=== PATIENT | male | born 1970 | race Caucasian/White ===

== ENCOUNTER 2016-10-08 02:19 | Inpatient (IN) | payer SELFPAY ==
[~2016-10-08] VITALS: Ht 172.7 cm; Wt 107.0 kg
[2016-10-08] VITALS (7 sets, daily range): BP systolic 133–149; BP diastolic 81–103
--- NOTE | 2016-10-08 02:57 | PHYS DOC ---
Past Medical History Past Medical History: Anxiety, CVA, Diabetes-Type II, High Cholesterol Past Surgical History: Cholecystectomy Alcohol Use: Occasionally Drug Use: None Adult General Chief Complaint Chief Complaint: CHEST PAIN HPI HPI Patient is a 46 year old male who presents with complaint of chest pain. Patient states that his pain has been present over the past 3 days and has been constant over the past day. Patient states the pain is in the middle of his chest. Patient states that it radiates up towards his neck and jaw. Patient has history of hypertension, anxiety, hyperlipidemia, type 2 diabetes mellitus, and history of CVA. The patient states that he has not been taking his blood pressure medication over the past 2-3 days because he forgot it at home and is visiting from out of town currently. Patient rates his pain as 8 out of 10. Patient also states that he has been having intermittent nausea, shortness of breath, and diaphoresis. Review of Systems Review of Systems Constitutional: Denies fever or chills [] Eyes: Denies change in visual acuity, redness, or eye pain [] HENT: Denies nasal congestion or sore throat [] Respiratory: Shortness of breath [] Cardiovascular: Chest pain [] GI: Nausea, denies abdominal abdominal pain, denies vomiting, bloody stools or diarrhea [] : Denies dysuria or hematuria [] Musculoskeletal: Denies back pain or joint pain [] Integument: Denies rash or skin lesions [] Neurologic: Denies headache, focal weakness or sensory changes [] Current Medications Current Medications Current Medications Medications (Trade) Dose Ordered Sig/Danny Start Time Stop Time Status Last Admin Dose Admin Aspirin (Children'S Aspirin) 324 mg 1X ONCE 10/08/16 03:00 10/08/16 03:01 UNV Labetalol HCl (Normodyne) 20 mg 1X ONCE 10/08/16 03:00 10/08/16 03:01 DC 10/08/16 03:07 20 MG Lorazepam 1 mg 1 mg 1X ONCE 10/08/16 03:00 10/08/16 03:01 DC 10/08/16 03:08 1 MG Multi-Ingredient Mouthwash/Gargle (Gi Cocktail Single Dose) 15 ml 1X ONCE 10/08/16 03:00 10/08/16 03:01 DC 10/08/16 03:00 15 ML Sodium Chloride (Iv Sodium Chloride 0.9% 1000ml Bag) 1,000 ml @ 100 mls/hr Q10H 10/08/16 03:00 10/08/16 12:59 10/08/16 03:09 100 MLS/HR Allergies Allergies Allergies Coded Allergies Type Severity Reaction Last Updated Verified metoclopramide Allergy Unknown 10/08/16 Yes Physical Exam Physical Exam Constitutional: Alert, afebrile, appears anxious and in mild to moderate discomfort. [] HENT: Normocephalic, atraumatic, bilateral external ears normal, oropharynx moist, no oral exudates, nose normal. [] Eyes: PERRLA, EOMI, conjunctiva normal, no discharge. [] Neck: Normal range of motion, no tenderness, supple, no stridor. [] Cardiovascular:Heart rate regular rhythm, no murmur [] Lungs & Thorax: Bilateral breath sounds clear to auscultation [] Abdomen: Bowel sounds normal, soft, mild diffuse tenderness palpation, no guarding or rebound tenderness, no masses, no pulsatile masses. [] Skin: Warm, dry, no erythema, no rash. [] Back: No tenderness, no CVA tenderness. [] Extremities: No tenderness, no cyanosis, no clubbing, ROM intact, no edema. [] Neurologic: Alert and oriented X 3, normal motor function, normal sensory function, no focal deficits noted. [] Current Patient Data Vital Signs Vital Signs Date Time Temp Pulse Resp B/P Pulse Ox O2 Delivery O2 Flow Rate FiO2 10/08/16 03:07 90 159/85 10/08/16 02:30 98.0 20 96 Room Air 98.0 Lab Values Laboratory Tests Test 10/08/16 02:25 10/08/16 02:30 Urine Collection Type Unknown Urine Color Yellow Urine Clarity Clear Urine pH 7.0 Urine Specific [place] >=1.030 Urine Protein Negativemg/dL (NEG-TRACE) Urine Glucose (UA) >=1000mg/dL (NEG) Urine Ketones (Stick) Negativemg/dL (NEG) Urine Blood Negative (NEG) Urine Nitrite Negative (NEG) Urine Bilirubin Negative (NEG) Urine Urobilinogen Dipstick 0.2mg/dL (0.2 mg/dL) Urine Leukocyte Esterase Negative (NEG) Urine RBC 0/HPF (0-2) Urine WBC Occ/HPF (0-4) Urine Squamous Epithelial Cells Occ/LPF Urine Bacteria 0/HPF (0-FEW) White Blood Count 10.4x10^3/uL (4.0-11.0) Red Blood Count 5.14x10^6/uL (4.30-5.70) Hemoglobin 15.0g/dL (13.0-17.5) Hematocrit 44.6% (39.0-53.0) Mean Corpuscular Volume 87fL (79-100) Mean Corpuscular Hemoglobin 29pg (25-35) Mean Corpuscular Hemoglobin Concent 34g/dL (31-37) Red Cell Distribution Width 13.5% (11.5-14.5) Platelet Count 176x10^3/uL (140-400) Neutrophils (%) (Auto) 66% (31-73) Lymphocytes (%) (Auto) 22% (24-48) L Monocytes (%) (Auto) 7% (0-9) Eosinophils (%) (Auto) 5% (0-3) H Basophils (%) (Auto) 1% (0-3) Neutrophils # (Auto) 6.9x10^3uL (1.8-7.7) Lymphocytes # (Auto) 2.2x10^3/uL (1.0-4.8) Monocytes # (Auto) 0.7x10^3/uL (0.0-1.1) Eosinophils # (Auto) 0.5x10^3/uL (0.0-0.7) Basophils # (Auto) 0.1x10^3/uL (0.0-0.2) Sodium Level 141mmol/L (136-145) Potassium Level 3.5mmol/L (3.5-5.1) Chloride Level 103mmol/L (98-107) Carbon Dioxide Level 28mmol/L (21-32) Anion Gap 10 (6-14) Blood Urea Nitrogen 10mg/dL (8-26) Creatinine 1.0mg/dL (0.7-1.3) Estimated GFR (Cockcroft-Gault) 80.8 Glucose Level 424mg/dL (70-99) H Calcium Level 8.3mg/dL (8.5-10.1) L Magnesium Level 1.7mg/dL (1.8-2.4) L Total Bilirubin 0.3mg/dL (0.2-1.0) Direct Bilirubin 0.1mg/dL (0.0-0.2) Aspartate Amino Transferase (AST) 18U/L (15-37) Alanine Aminotransferase (ALT) 43U/L (16-63) Alkaline Phosphatase 198U/L (46-116) H Creatine Kinase 362U/L (39-308) H Creatine Kinase MB (Mass) 1.1ng/mL (0.0-3.6) Creatine Kinase MB Relative Index 0.3% (0-4) Troponin I Quantitative < 0.017ng/mL (0.000-0.055) Total Protein 6.3g/dL (6.4-8.2) L Albumin 2.9g/dL (3.4-5.0) L Lipase 180U/L (73-393) Laboratory Tests 10/08/16 02:30 Laboratory Tests 10/08/16 02:30 EKG EKG Interpreted by me: Heart rate 90, sinus rhythm, normal intervals, axis deviation , no acute ST/T-wave abnormalities present [] Radiology/Procedures Radiology/Procedures One view AP chest x-ray interpreted by me: No infiltrate, no effusion, normal cardiac silhouette [] Course & Med Decision Making Course & Med Decision Making Pertinent Labs and Imaging studies reviewed. (See chart for details) Patient was treated with labetalol, Ativan, and aspirin in the emergency department. On reevaluation, patient's pressure has improved significantly, however patient continues to complain of significant chest pain. Patient's blood sugar was found to be significantly elevated. Patient also has an elevation in his CK level with a negative troponin at this time. Due to significant risk factors, the patient will need to be admitted for rule out of myocardial infarction. Patient admitted to Dr. Torres. Esequiel Disclaimer Esequiel Disclaimer This electronic medical record was generated, in whole or in part, using a voice recognition dictation system. 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
[2016-10-08 03:00] LABS: BASO # 0.1 x10^3/uL (0.0-0.2); BASO % 1 % (0-3); EOS % 5 % (0-3); HEMATOCRIT 44.6 % (39.0-53.0); LYMPH # 2.2 x10^3/uL (1.0-4.8); LYMPH % 22 % (24-48); MEAN CORPUSCULAR HEMOGLOBIN 29 pg (25-35); MEAN CORPUSCULAR HGB CONC 34 g/dL (31-37); MEAN CORPUSCULAR VOLUME 87 fL (79-100); MONO % 7 % (0-9); NEUT % 66 % (31-73); PLATELET COUNT 176 x10^3/uL (140-400); RED BLOOD COUNT 5.14 x10^6/uL (4.30-5.70); RED CELL DISTRIBUTION WIDTH 13.5 % (11.5-14.5); WHITE BLOOD COUNT 10.4 x10^3/uL (4.0-11.0)
[2016-10-08] MEDS ORDERED: IV NORMAL SALINE 1000ML BAG 1,000 ML IV SCH (03:00)
[2016-10-08] MEDS ORDERED: LABETALOL 20 MG/4 ML DISP.SYRIN. IVP ONE (03:00)
[2016-10-08] MEDS ORDERED: ASPIRIN 81 MG TAB.CHEW PO ONE ×2 (03:00)
[2016-10-08] MEDS ORDERED: LIDO:MAALOX:DONNATAL 1:1:1 15 ML SINGLE DOSE SWSW ONE (03:00)
[2016-10-08] MEDS ORDERED: LORAZEPAM 2 MG/ML VIAL IV ONE (03:00)
[2016-10-08 03:04] LABS: BILIRUBIN,URINE NEGATIVE (NEG); GLUCOSE,URINE >=1000 mg/dL (NEG); NITRITE,URINE NEGATIVE (NEG); PROTEIN,URINE NEGATIVE (NEG-TRACE); UROBILINOGEN,URINE 0.2 mg/dL (0.2 mg/dL)
[2016-10-08 03:11] LABS: BACTERIA,URINE 0 /HPF (0-FEW); RBC,URINE 0 /HPF (0-2); SQUAMOUS EPITHELIAL CELL,UR OCC /LPF; WBC,URINE OCC /HPF (0-4)
[2016-10-08 03:14] LABS: CALCIUM 8.3 mg/dL (8.5-10.1); GFR 80.8; POTASSIUM 3.5 mmol/L (3.5-5.1)
[2016-10-08 03:20] LABS: ALBUMIN 2.9 g/dL (3.4-5.0); DIRECT BILIRUBIN 0.1 mg/dL (0.0-0.2); MAGNESIUM 1.7 mg/dL (1.8-2.4); TOTAL BILIRUBIN 0.3 mg/dL (0.2-1.0); TOTAL PROTEIN 6.3 g/dL (6.4-8.2)
[2016-10-08 03:28] LABS: CKMB INDEX 0.3 % (0-4); CKMB MASS 1.1 ng/mL (0.0-3.6)
[2016-10-08] MEDS ORDERED: ACETAMINOPHEN 325 MG TABLET. PO PRN ×2 (03:45→09:30)
[2016-10-08] MEDS ORDERED: DEXTROSE 50% 25 GM / 50ML DISP.SYRIN. IV PRN (03:45)
[2016-10-08] MEDS: IV NORMAL SALINE 1000ML BAG 1,000 ML IV SCH ×3 (03:45→22:25)
[2016-10-08] MEDS ORDERED: ONDANSETRON PF 4 MG/2 ML VIAL. IV PRN ×2 (03:45→09:30)
[2016-10-08] MEDS: HYDROMORPHONE 2 MG/ML VIAL. IV PRN ×9 (04:49→23:58)
--- NOTE | 2016-10-08 06:22 | EKG ---
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
[2016-10-08] MEDS ORDERED: FENTANYL PF 100 MCG/2 ML VIAL. IV PRN (06:30)
--- NOTE | 2016-10-08 07:19 | RAD ---
Portable chest, 10/08/2016: History: Chest pain The heart size and pulmonary vascularity are normal. The depth of inspiration is suboptimal with minimal right basilar atelectasis. No pulmonary consolidation is seen. There is no evidence of pleural fluid. IMPRESSION: 1. Minimal right basilar atelectasis. 2. The portable chest is otherwise unremarkable.
[2016-10-08] MEDS: INSULIN ASPART 300 UNITS/3 ML INSULN.PEN SQ SCH ×3 (07:46→16:59)
[2016-10-08] MEDS ORDERED: PNEUMOCOCCAL VAX SCREEN BY RX. MC ONE (08:00)
[2016-10-08] MEDS ORDERED: ATOR10TA60 PO (08:06)
[2016-10-08] MEDS ORDERED: TERB250T8 PO (08:06)
[2016-10-08] MEDS ORDERED: HYDR25CA75 PO (08:06)
[2016-10-08] MEDS ORDERED: AMLO10TA2 PO (08:06)
[2016-10-08] MEDS ORDERED: BUPR100T11 PO (08:06)
[2016-10-08] MEDS ORDERED: REPA1TAB6 PO (08:06)
[2016-10-08] MEDS ORDERED: INSU100V13 SQ (08:06)
[2016-10-08] MEDS ORDERED: LISI-334 PO (08:06)
[2016-10-08] MEDS ORDERED: LORA1TAB PO (08:06)
[2016-10-08] MEDS ORDERED: LISI1TAB5 PO (08:06)
[2016-10-08] MEDS ORDERED: METF10002 PO (08:06)
[2016-10-08] MEDS ORDERED: IBUP-1027 PO (08:06)
[2016-10-08] MEDS ORDERED: PNEUMOC CONJ VACC 23-VALENT 0.5 ML VIAL. VAX IM ONE (09:00)
[2016-10-08] MEDS ORDERED: hydrALAZINE 20 MG/ML VIAL. IVP PRN (09:30)
[2016-10-08] MEDS ORDERED: ALBUTEROL SULFATE 2.5 MG/3 ML NEBU. NEB PRN (09:30)
--- NOTE | 2016-10-08 09:32 | PDOC1 ---
History and Physical Current Problem List Problem List Problems Medical Problems: (1) Accelerated hypertension Status: Acute (2) Chest pain Status: Acute (3) Dehydration Status: Acute (4) Moderate protein malnutrition Status: Acute (5) Uncontrolled diabetes mellitus Status: Acute Current Medications Current Medications Current Medications Medications (Trade) Dose Ordered Sig/Danny Start Time Stop Time Status Last Admin Dose Admin Acetaminophen (Tylenol) 650 mg PRN Q4HRS PRN 10/08/16 03:45 10/09/16 03:44 Aspirin (Children'S Aspirin) 324 mg 1X ONCE 10/08/16 03:00 10/08/16 03:01 UNV Dextrose 12.5 gm PRN Q15MIN PRN 10/08/16 03:45 Fentanyl Citrate (Fentanyl 2ml Vial) 50 mcg PRN Q2HR PRN 10/08/16 06:30 10/08/16 06:36 50 MCG Hydromorphone HCl (Dilaudid) 1 mg PRN Q2HR PRN 10/08/16 03:45 10/08/16 07:41 1 MG Insulin Aspart (Novolog) 0-9 UNITS TIDWMEALS 10/08/16 08:00 10/08/16 07:46 5 UNITS Labetalol HCl (Normodyne) 20 mg 1X ONCE 10/08/16 03:00 10/08/16 03:01 DC 10/08/16 03:07 20 MG Lorazepam (Ativan) 1 mg 1X ONCE 10/08/16 03:00 10/08/16 03:01 DC 10/08/16 03:08 1 MG Multi-Ingredient Mouthwash/Gargle (Gi Cocktail Single Dose) 15 ml 1X ONCE 10/08/16 03:00 10/08/16 03:01 DC 10/08/16 03:00 15 ML Ondansetron HCl 4 mg 4 mg PRN Q8HRS PRN 10/08/16 03:45 10/09/16 03:44 Pneumococcal Polyvalent Vaccine (Do NOT chart on this placeholder) 1 each 1X ONCE 10/08/16 08:00 10/08/16 08:01 UNV Pneumococcal Polyvalent Vaccine (Pneumovax 23) 0.5 ml ONCE ONCE 10/08/16 09:00 10/08/16 09:01 DC Sodium Chloride (Iv Sodium Chloride 0.9% 1000ml Bag) 1,000 ml @ 100 mls/hr Q10H 10/08/16 03:45 10/09/16 03:44 Allergies Allergies Allergies Coded Allergies Type Severity Reaction Last Updated Verified metoclopramide Allergy Unknown 10/08/16 Yes ROS Review of System CONSTITUTIONAL: No fever or chills EYES: No recent changes SKIN: No rash or itching CARDIOVASCULAR: chest pain, no syncope, palpitations, or edema RESPIRATORY: No SOB or cough GASTROINTESTINAL: No nausea, vomiting or abdominal pain NEUROLOGICAL: No headaches or weakness ENDOCRINE: No cold or heat intolerance GENITOURINARY: No urgency or frequency of urination MUSCULOSKELETAL: No back pain or joint pain LYMPHATICS: No enlarged lymph nodes PSYCHIATRIC: No anxiety or depression Physical Exam Physical Exam GEN.: No apparent distress. Alert and oriented. HEENT: Head is normocephalic, atraumatic NECK: Supple. no jvd LUNGS: Clear to auscultation. normal airflow HEART: RRR, S1, S2 present. Peripheral pulses intact ABDOMEN: Soft, nontender. Positive bowel sounds. EXTREMITIES: Without any cyanosis. NEUROLOGIC: Normal speech, normal tone PSYCHIATRIC: Normal affect, normal mood. SKIN: No ulcerations Vitals Vitals Vital Signs Date Time Temp Pulse Resp B/P Pulse Ox O2 Delivery O2 Flow Rate FiO2 10/08/16 08:00 Room Air 10/08/16 07:00 98.0 71 20 133/88 90 98.0 Labs Labs Laboratory Tests Test 10/08/16 02:25 10/08/16 02:30 10/08/16 06:58 Urine Collection Type Unknown Urine Color Yellow Urine Clarity Clear Urine pH 7.0 Urine Specific [place] >=1.030 Urine Protein Negativemg/dL (NEG-TRACE) Urine Glucose (UA) >=1000mg/dL (NEG) Urine Ketones (Stick) Negativemg/dL (NEG) Urine Blood Negative (NEG) Urine Nitrite Negative (NEG) Urine Bilirubin Negative (NEG) Urine Urobilinogen Dipstick 0.2mg/dL (0.2 mg/dL) Urine Leukocyte Esterase Negative (NEG) Urine RBC 0/HPF (0-2) Urine WBC Occ/HPF (0-4) Urine Squamous Epithelial Cells Occ/LPF Urine Bacteria 0/HPF (0-FEW) White Blood Count 10.4x10^3/uL (4.0-11.0) Red Blood Count 5.14x10^6/uL (4.30-5.70) Hemoglobin 15.0g/dL (13.0-17.5) Hematocrit 44.6% (39.0-53.0) Mean Corpuscular Volume 87fL (79-100) Mean Corpuscular Hemoglobin 29pg (25-35) Mean Corpuscular Hemoglobin Concent 34g/dL (31-37) Red Cell Distribution Width 13.5% (11.5-14.5) Platelet Count 176x10^3/uL (140-400) Neutrophils (%) (Auto) 66% (31-73) Lymphocytes (%) (Auto) 22% (24-48) Monocytes (%) (Auto) 7% (0-9) Eosinophils (%) (Auto) 5% (0-3) Basophils (%) (Auto) 1% (0-3) Neutrophils # (Auto) 6.9x10^3uL (1.8-7.7) Lymphocytes # (Auto) 2.2x10^3/uL (1.0-4.8) Monocytes # (Auto) 0.7x10^3/uL (0.0-1.1) Eosinophils # (Auto) 0.5x10^3/uL (0.0-0.7) Basophils # (Auto) 0.1x10^3/uL (0.0-0.2) Sodium Level 141mmol/L (136-145) Potassium Level 3.5mmol/L (3.5-5.1) Chloride Level 103mmol/L (98-107) Carbon Dioxide Level 28mmol/L (21-32) Anion Gap 10 (6-14) Blood Urea Nitrogen 10mg/dL (8-26) Creatinine 1.0mg/dL (0.7-1.3) Estimated GFR (Cockcroft-Gault) 80.8 Glucose Level 424mg/dL (70-99) Calcium Level 8.3mg/dL (8.5-10.1) Magnesium Level 1.7mg/dL (1.8-2.4) Total Bilirubin 0.3mg/dL (0.2-1.0) Direct Bilirubin 0.1mg/dL (0.0-0.2) Aspartate Amino Transf (AST/SGOT) 18U/L (15-37) Alanine Aminotransferase (ALT/SGPT) 43U/L (16-63) Alkaline Phosphatase 198U/L (46-116) Creatine Kinase 362U/L (39-308) Creatine Kinase MB (Mass) 1.1ng/mL (0.0-3.6) Creatine Kinase MB Relative Index 0.3% (0-4) Troponin I Quantitative < 0.017ng/mL (0.000-0.055) Total Protein 6.3g/dL (6.4-8.2) Albumin 2.9g/dL (3.4-5.0) Lipase 180U/L (73-393) Glucose (Fingerstick) 371mg/dL (70-99) Laboratory Tests Test 10/08/16 02:25 10/08/16 02:30 10/08/16 06:58 Urine Collection Type Unknown Urine Color Yellow Urine Clarity Clear Urine pH 7.0 Urine Specific [place] >=1.030 Urine Protein Negativemg/dL (NEG-TRACE) Urine Glucose (UA) >=1000mg/dL (NEG) Urine Ketones (Stick) Negativemg/dL (NEG) Urine Blood Negative (NEG) Urine Nitrite Negative (NEG) Urine Bilirubin Negative (NEG) Urine Urobilinogen Dipstick 0.2mg/dL (0.2 mg/dL) Urine Leukocyte Esterase Negative (NEG) Urine RBC 0/HPF (0-2) Urine WBC Occ/HPF (0-4) Urine Squamous Epithelial Cells Occ/LPF Urine Bacteria 0/HPF (0-FEW) White Blood Count 10.4x10^3/uL (4.0-11.0) Red Blood Count 5.14x10^6/uL (4.30-5.70) Hemoglobin 15.0g/dL (13.0-17.5) Hematocrit 44.6% (39.0-53.0) Mean Corpuscular Volume 87fL (79-100) Mean Corpuscular Hemoglobin 29pg (25-35) Mean Corpuscular Hemoglobin Concent 34g/dL (31-37) Red Cell Distribution Width 13.5% (11.5-14.5) Platelet Count 176x10^3/uL (140-400) Neutrophils (%) (Auto) 66% (31-73) Lymphocytes (%) (Auto) 22% (24-48) Monocytes (%) (Auto) 7% (0-9) Eosinophils (%) (Auto) 5% (0-3) Basophils (%) (Auto) 1% (0-3) Neutrophils # (Auto) 6.9x10^3uL (1.8-7.7) Lymphocytes # (Auto) 2.2x10^3/uL (1.0-4.8) Monocytes # (Auto) 0.7x10^3/uL (0.0-1.1) Eosinophils # (Auto) 0.5x10^3/uL (0.0-0.7) Basophils # (Auto) 0.1x10^3/uL (0.0-0.2) Sodium Level 141mmol/L (136-145) Potassium Level 3.5mmol/L (3.5-5.1) Chloride Level 103mmol/L (98-107) Carbon Dioxide Level 28mmol/L (21-32) Anion Gap 10 (6-14) Blood Urea Nitrogen 10mg/dL (8-26) Creatinine 1.0mg/dL (0.7-1.3) Estimated GFR (Cockcroft-Gault) 80.8 Glucose Level 424mg/dL (70-99) Calcium Level 8.3mg/dL (8.5-10.1) Magnesium Level 1.7mg/dL (1.8-2.4) Total Bilirubin 0.3mg/dL (0.2-1.0) Direct Bilirubin 0.1mg/dL (0.0-0.2) Aspartate Amino Transf (AST/SGOT) 18U/L (15-37) Alanine Aminotransferase (ALT/SGPT) 43U/L (16-63) Alkaline Phosphatase 198U/L (46-116) Creatine Kinase 362U/L (39-308) Creatine Kinase MB (Mass) 1.1ng/mL (0.0-3.6) Creatine Kinase MB Relative Index 0.3% (0-4) Troponin I Quantitative < 0.017ng/mL (0.000-0.055) Total Protein 6.3g/dL (6.4-8.2) Albumin 2.9g/dL (3.4-5.0) Lipase 180U/L (73-393) Glucose (Fingerstick) 371mg/dL (70-99) VTE Prophylaxis Ordered VTE Prophylaxis Devices: Yes VTE Pharmacological Prophylaxi: Yes SANDY RANKIN MD Oct 08, 2016 09:32
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
[2016-10-08] MEDS ORDERED: IBUPROFEN 400 MG TABLET. PO PRN (09:45)
[2016-10-08 10:24] LABS: CHOLESTEROL/HDL RATIO 6.6
[2016-10-08] MEDS: LISINOPRIL 20 MG TABLET PO SCH ×2 (10:42→17:32)
[2016-10-08] MEDS: HYDROCODONE/APAP 5/325MG TABLET. PO PRN ×2 (10:43→22:10)
[2016-10-08] MEDS: LORAZEPAM 1 MG TABLET. PO PRN ×2 (10:43→19:30)
[2016-10-08] MEDS: AMLODIPINE BESYLATE 10 MG TABLET PO SCH (10:43)
[2016-10-08] MEDS: TERBINAFINE 250 MG TABLET. PO SCH (11:00)
[2016-10-08] MEDS ORDERED: MAGNESIUM SULFATE 2GM 50 ML IV ONE (11:00)
[2016-10-08] MEDS ORDERED: METFORMIN 1,000 MG TABLET PO SCH (11:00)
[2016-10-08] MEDS: REPAGLINIDE 0.5 MG TABLET PO SCH ×2 (11:07→16:54)
--- NOTE | 2016-10-08 11:55 | PDOC ---
Infectious Disease Note Vital Sign Vital Signs Vital Signs Date Time Temp Pulse Resp B/P Pulse Ox O2 Delivery O2 Flow Rate FiO2 10/08/16 11:00 98.1 74 20 143/98 93 Room Air 98.1 Labs Lab Laboratory Tests Test 10/08/16 02:25 10/08/16 02:30 10/08/16 06:58 10/08/16 09:55 Urine Collection Type Unknown Urine Color Yellow Urine Clarity Clear Urine pH 7.0 Urine Specific [place] >=1.030 Urine Protein Negativemg/dL (NEG-TRACE) Urine Glucose (UA) >=1000mg/dL (NEG) Urine Ketones (Stick) Negativemg/dL (NEG) Urine Blood Negative (NEG) Urine Nitrite Negative (NEG) Urine Bilirubin Negative (NEG) Urine Urobilinogen Dipstick 0.2mg/dL (0.2 mg/dL) Urine Leukocyte Esterase Negative (NEG) Urine RBC 0/HPF (0-2) Urine WBC Occ/HPF (0-4) Urine Squamous Epithelial Cells Occ/LPF Urine Bacteria 0/HPF (0-FEW) White Blood Count 10.4x10^3/uL (4.0-11.0) Red Blood Count 5.14x10^6/uL (4.30-5.70) Hemoglobin 15.0g/dL (13.0-17.5) Hematocrit 44.6% (39.0-53.0) Mean Corpuscular Volume 87fL (79-100) Mean Corpuscular Hemoglobin 29pg (25-35) Mean Corpuscular Hemoglobin Concent 34g/dL (31-37) Red Cell Distribution Width 13.5% (11.5-14.5) Platelet Count 176x10^3/uL (140-400) Neutrophils (%) (Auto) 66% (31-73) Lymphocytes (%) (Auto) 22% (24-48) Monocytes (%) (Auto) 7% (0-9) Eosinophils (%) (Auto) 5% (0-3) Basophils (%) (Auto) 1% (0-3) Neutrophils # (Auto) 6.9x10^3uL (1.8-7.7) Lymphocytes # (Auto) 2.2x10^3/uL (1.0-4.8) Monocytes # (Auto) 0.7x10^3/uL (0.0-1.1) Eosinophils # (Auto) 0.5x10^3/uL (0.0-0.7) Basophils # (Auto) 0.1x10^3/uL (0.0-0.2) Sodium Level 141mmol/L (136-145) Potassium Level 3.5mmol/L (3.5-5.1) Chloride Level 103mmol/L (98-107) Carbon Dioxide Level 28mmol/L (21-32) Anion Gap 10 (6-14) Blood Urea Nitrogen 10mg/dL (8-26) Creatinine 1.0mg/dL (0.7-1.3) Estimated GFR (Cockcroft-Gault) 80.8 Glucose Level 424mg/dL (70-99) Calcium Level 8.3mg/dL (8.5-10.1) Magnesium Level 1.7mg/dL (1.8-2.4) Total Bilirubin 0.3mg/dL (0.2-1.0) Direct Bilirubin 0.1mg/dL (0.0-0.2) Aspartate Amino Transf (AST/SGOT) 18U/L (15-37) Alanine Aminotransferase (ALT/SGPT) 43U/L (16-63) Alkaline Phosphatase 198U/L (46-116) Creatine Kinase 362U/L (39-308) Creatine Kinase MB (Mass) 1.1ng/mL (0.0-3.6) Creatine Kinase MB Relative Index 0.3% (0-4) Troponin I Quantitative < 0.017ng/mL (0.000-0.055) < 0.017ng/mL (0.000-0.055) Total Protein 6.3g/dL (6.4-8.2) Albumin 2.9g/dL (3.4-5.0) Triglycerides Level 629mg/dL (0-150) Cholesterol Level 199mg/dL (0-200) LDL Cholesterol, Calculated 43mg/dL (0-100) VLDL Cholesterol, Calculated 126mg/dL (0-40) HDL Cholesterol 30mg/dL (40-60) Cholesterol/HDL Ratio 6.6 Lipase 180U/L (73-393) Thyroid Stimulating Hormone (TSH) 3.522uIU/mL (0.358-3.74) Glucose (Fingerstick) 371mg/dL (70-99) D-Dimer (Judy) < 0.27ug/mlFEU (0.00-0.50) Test 10/08/16 11:43 Glucose (Fingerstick) 279mg/dL (70-99) Objective Assessment Syphilis with the RPR titer 1: 512 Chest pain HTN MS CVA Plan Plan of Care PCN G 2.4 million units x 1 repeat rpr, FTA ABS pending SIS CARBONE MD Oct 08, 2016 11:54
[2016-10-08] MEDS ORDERED: PENICILLIN G BENZATHINE LA 2,400,000 UNIT/4 ML DISP.SYRIN. IM ONE (13:00)
[2016-10-08] MEDS ORDERED: IOHEXOL 350 MG/ML 100ML VIAL. IV ONE (13:15)
[2016-10-08] MEDS ORDERED: CONTRAST GIVEN MC PRN (13:15)
--- NOTE | 2016-10-08 14:00 | CARD ---
APPROVED REPORT EXAM: Two-dimensional and M-mode echocardiogram with Doppler and color Doppler. Other Information Quality : Average Rhythm : NSR INDICATION Chest Pain 2D DIMENSIONS RVDd2.7 (2.9-3.5cm)Left Atrium(2D)3.6 (1.6-4.0cm) IVSd1.2 (0.7-1.1cm)Aortic Root(2D)3.2 (2.0-3.7cm) LVDd4.8 (3.9-5.9cm)LVOT Diameter2.2 (1.8-2.4cm) PWd1.2 (0.7-1.1cm)LVDs3.3 (2.5-4.0cm) FS (%) 31.9 %SV64.7 ml LVEF(%)59.9 (>50%) Aortic Valve AoV Peak Trell.142.8cm/sAoV VTI26.1cm AO Peak GR.8.2mmHgLVOT Peak Trell.113.9cm/s LVOT VTI 24.56cmAO Mean GR.4mmHg RONIT (VMAX)3.28vi5VCW (VTI)3.60cm2 Mitral Valve MV E Fyctewut42.9cm/sMV DECEL HTRC655la MV A Rvhthiwo02.9cm/sMV E Mean Gr.2mmHg MV LKD94hvJ/A Ratio1.3 MV A Jfrtgtuk565guMLU (PHT)3.94cm2 TDI E/Lateral E'8.0E/Medial E'8.1 Pulmonary Valve PV Peak Uzhptldr97.3cm/sPV Peak Grad.3mmHg RVOT VTI17.1cm Tricuspid Valve TR P. Yirpkltk592po/sRAP FPDTFWYB6gwKz TR Peak Gr.52paHtGJCW15twDn Pulmonary Vein S1 Tnmzcbxq77.9cm/sD2 Dndnqlce95.1cm/s LEFT VENTRICLE The left ventricle is normal size. There is borderline concentric left ventricular hypertrophy. Left ventricle systolic function is normal. The Ejection Fraction is 60-65%. There is normal LV segmental wall motion. The left ventricular diastolic function and filling is normal for age. RIGHT VENTRICLE The right ventricle is normal size. The right ventricular systolic function is normal. ATRIA The left atrium size is normal. The right atrium size is normal. The interatrial septum is intact wit h no evidence for an atrial septal defect or patent foramen ovale as noted on 2-D or Doppler imaging. AORTIC VALVE The aortic valve is normal in structure and function. The aortic valve is trileaflet. Doppler and Col or Flow revealed no significant aortic regurgitation. There is no significant aortic valvular stenosi s. MITRAL VALVE The mitral valve is normal in structure and function. There is no mitral valve stenosis. Doppler and Color Flow revealed no mitral valve regurgitation noted. TRICUSPID VALVE The tricuspid valve is normal in structure and function. Doppler and Color Flow revealed trace tricus pid regurgitation. The PA pressure was estimated at 19 mmHg. There is no tricuspid valve stenosis. PULMONIC VALVE The pulmonic valve is not well visualized. Doppler and Color Flow revealed no pulmonic valvular regur gitation. There is no pulmonic valvular stenosis. GREAT VESSELS The aortic root is normal in size. Normal pulmonary venous flow (Doppler). The IVC is normal in size and collapses >50% with inspiration. PERICARDIAL EFFUSION There is no evidence of significant pericardial effusion. Critical Notification Critical Value: No <Conclusion> Left ventricle systolic function is normal. The Ejection Fraction is 60-65%. There is normal LV segmental wall motion.
--- NOTE | 2016-10-08 14:52 | RAD ---
EXAM: CT angiogram of the chest with and without intravenous contrast. HISTORY: Chest pain. TECHNIQUE: Computed tomographic images of the chest were obtained prior to and following the administration of 800 cc Omnipaque 300 intravenous contrast. Three-dimensional maximum intensity projection images were obtained. COMPARISON: None. FINDINGS: There is no evidence of aortic aneurysm or dissection. There is a standard aortic arch branching pattern. There is no aortic wall thickening or surrounding stranding. There are several prominent mediastinal lymph nodes, a nonspecific finding. For reference purposes, there is a right paratracheal lymph node measuring 1.3 cm in maximum dimension. There is no pneumothorax or pleural effusion. There is mild posterior dependent atelectasis. There is a 7 mm nodular opacity along the superior aspect of the right major fissure, possibly an interfissural lymph node. There is suspected lingular atelectasis or scarring. There is hepatomegaly and hepatic steatosis. No focal hepatic lesion is seen. The gallbladder is surgically absent. The pancreas, spleen, adrenal glands and distal aspects of the kidneys are unremarkable. There are degenerative changes throughout the thoracic spine. No suspicious osseous lesion is seen. There is mild gynecomastia. IMPRESSION: 1. Prominent nonspecific mediastinal lymph nodes. These may be reactive or physiologic. 2. 7 mm nodular opacity along the superior aspect of the right major fissure, possibly an interfissural lymph node. Follow-up can be performed according to Fleischner Society criteria if clinically indicated. 3. Hepatomegaly and hepatic steatosis.
[2016-10-08] MEDS: HYDROCHLOROTHIAZIDE 12.5 MG CAPSULE. PO SCH (17:36)
[2016-10-08] MEDS ORDERED: ATORVASTATIN CALCIUM 10 MG TABLET. PO SCH (21:00)
[2016-10-08] MEDS ORDERED: HYDROXYZINE PAMOATE 25 MG CAPSULE PO SCH (21:00)
[2016-10-08] MEDS ORDERED: INSULIN DETEMIR 300 UNITS/3 ML INSULN.PEN. SQ SCH (21:00)
[2016-10-08] MEDS: buPROPion 100 MG TABLET PO SCH (21:52)
[2016-10-08] MEDS: OMEGA-3 FATTY ACIDS/FISH OIL 1,000 MG CAPSULE. PO SCH (21:53)
--- NOTE | 2016-10-09 01:00 | CONS ---
DATE OF CONSULTATION: 10/08/2016 REQUESTING PHYSICIAN: Dr. Rogers. REASON FOR CONSULTATION: Syphilis titer positive. HISTORY OF PRESENT ILLNESS: This is a 46-year-old gentleman with history of hypertension, acute AR, CVA, who came in with chest pain, significant anxiety disorder. He says he just could not breathe because he was so worried about his heart. The patient also does plasma donation and recently he was told that his RPR is positive, and he was supposed to have treatment done, but he has not thought on it yet. The patient denies any sexual encounter apart from his whom he is together with for 27 years, he says. Also denies any penile lesions. PAST MEDICAL HISTORY: Positive for hypertension, coronary artery disease, hyperlipidemia, CVA and diabetes. SOCIAL HISTORY: Negative for smoking, alcohol, or illicit drug use. ALLERGIES: No known antibiotic allergies. CURRENT MEDICATIONS: Reviewed. REVIEW OF SYSTEMS: As per HPI, all other systems reviewed are negative. PHYSICAL EXAMINATION: GENERAL: Alert, oriented gentleman, not in distress. VITAL SIGNS: Stable, afebrile. HEENT: NAD. NECK: Supple, no JVP, no lymphadenopathy. LUNGS: Clear. HEART: S1, S2 regular. ABDOMEN: Benign. EXTREMITIES: No edema or cyanosis. SKIN: Unremarkable. NEUROLOGIC: The patient is neurologically intact. LABORATORY DATA: The patient's white count is normal. BUN and creatinine is normal. Glucose is very high. Urinalysis unremarkable. Chest x-ray is unremarkable. Echocardiogram was unremarkable on preliminary verbal report. I did call [facility] in [place] and talked to the health department there. His titer was 1:512, and FTA-ABS and HIV testings are pending. IMPRESSION: 1. Early syphilis, at least by his history. 2. Chest pain. 3. Diabetes. 4. Hypertension. 5. Coronary artery disease. RECOMMENDATION: Would give 2.4 million units of penicillin G. We will repeat the titrate to see if it keeps going up, and he is going to have followup with [facility]. Thank you very much, Dr. Rogers, for giving me the opportunity to participate in this patient's care. SIS CARBONE MD DR: SADAF/roxane JOB#: [id number] / [id number]
--- NOTE | 2016-10-09 02:16 | HP ---
ADMIT DATE: 10/08/2016 CHIEF COMPLAINT: Chest pain. HISTORY OF PRESENT ILLNESS: A 46-year-old male patient, presented to the ER with a complaint of chest pain for 4 days. The patient described his chest pain as a pressure in the center of his chest radiating into the back and both sides of the shoulder and jaw and neck. He has been suffering for the last 4 days; however, yesterday, he visited ____, which made him to come to the ER. He denies any other symptoms such as syncope, palpitations; however, his symptoms got better with GI cocktail. Denies any other symptoms. He had a history of WI in the past and also CVA in the past. His stress test was negative in the past. The patient denies that his symptoms are not comparable to his earlier presentation. PAST MEDICAL HISTORY: 1. Hypertension. 2. WI in 2008. 3. CVA. 4. Ventral hernia. 5. Osteoarthritis. 6. Questionable syphilis discovered as part of the routine blood work and blood transfusions were offered. 7. Diabetes. PAST SURGICAL HISTORY: Cholecystectomy. FAMILY HISTORY: Coronary artery disease in father and mother. SOCIAL HISTORY: Less than 1 pack of smoking. No alcohol, no drug abuse. REVIEW OF SYSTEMS AND PHYSICAL EXAMINATION: Please see my electronic H and P. LABORATORY FINDINGS: First set of troponins negative. CBC, BMP within normal limits. Magnesium is 1.7, sodium 141, potassium 3.5, chloride is 103, carbon dioxide 28, anion gap is 10. CBC: WBC 10.4, hemoglobin is 15.0, MCV is 87, platelets ____ 17.6. D-dimer less than 0.27. IMAGING STUDIES: Chest x-ray: No acute process seen. ASSESSMENT: 1. Intractable chest pain, possible differential, coronary artery disease, unstable angina, gastritis, pulmonary embolism, aortic dissection. 2. Questionable syphilis. 3. Prior history of cerebrovascular accident. 4. Hypertension. 5. Diabetes mellitus. PLAN: 1. Cardiology has been consulted for further cardiac workup. We will monitor 2 sets of troponin and D-dimer. CTA of the chest versus coronary angiogram as per Cardiology. 2. Infectious Disease has been consulted for ____ penicillin administration. 3. Pain control with IV Dilaudid 1 mg q.2 hours as needed. 4. Plan explained to the patient and his . 5. Prognosis is guarded. SANDY RANKIN MD DR: KELECHI/roxane JOB#: [id number] / [id number]
[2016-10-09 03:19] VITALS: BP 143/96
--- NOTE | 2016-10-09 05:00 | ACF ---
Admission Forms Criteria CHEST PAIN Clinical Indications for Admission to Inpatient Care (Place 'X' for any and all applicable criteria): Admission is indicated for chest pain and ANY ONE of the following(1)(2)(3)(4)(5 ): [ ]I. Angina with acute coronary syndrome (Also use Myocardial Infarction or Angina guideline) [ ]II. Hemodynamic instability [ ]III. Angina needing acute intervention as indicated by ALL of the following( 11)(12): [ ]a) Unstable angina is present as indicated by angina that is ANY ONE of the following: [ ]i) New onset [ ]ii) Nocturnal [ ]iii) Prolonged at rest [ ]iv) Progressive [ ]b) Angina warrants acute intervention as indicated by ANY ONE of the following: [ ]i) Recurrent angina (e.g, not responding as previously to treatment) [ ]ii) Angina at rest or with low-level activities despite initial medical therapy [ ]iii) New or presumably new ST-segment depression on ECG [ ]iv) Signs or symptoms of heart failure (eg, dyspnea, pulmonary edema) [ ]v) New or worsening mitral regurgitation [ ]vi) Hemodynamic instability [ ]vii) Dangerous arrhythmia (eg, sustained ventricular tachycardia) [ ]viii) History of percutaneous coronary intervention within 6 months [ ]ix) History of coronary artery bypass graft surgery [ ]x) STEFANY risk score of 2 or greater[A] [ ]xi) History of Diabetes(14) [ ]xii) High-risk cardiac ischemia findings on noninvasive testing (e.g, echocardiogram, treadmill testing, nuclear scan) [ ]xiii) Chronic renal insufficiency (ie, estimated GFR less than 60 mL/min/1.732m) [ ]xiv) Left ventricular ejection fraction less than 40% [ ]IV. Evidence of NM (eg, cardiac biomarkers positive, ST-segment elevation on ECG) also use Myocardial Infarction Criteria Form. [ ]V. Pulmonary edema [ ]. Respiratory distress [ ]VII. Chest pain indicative of serious diagnosis other than coronary artery disease (eg, aortic dissection) [ ]VIII. Contraindications and/or Inappropriate clinical situations for Observational Care in patients with Chest Pain, when ANY ONE of the following is required: [ ]a) Patient with risk factor for pulmonary embolism, acute coronary syndrome and myocardial infarction (18) [ ]b) Patient with Pulmonary embolism require an average LOS of 4.3 days, therefore emergency department observation management is inappropriate 18,23 [ ]c) Painful condition/s in the elderly, have the highest rate of recidivism after emergency department observation management (10.8%) 20,21,22 [ ]d) Elevated cardiac biomarker requires intensive and exhaustive care (19) [X]IX. General contraindications and/or Inappropriate clinical situations for Observational Care in patients with Chest Pain, when ANY ONE of the following is required: [X]a) Prediction of prolongation of LOS based on ANY ONE of the following may be considered as a contraindication for observational care 2, 3, 4, 5, 6, 7, 8, 9, 10, 11 [ ]i) Age > 65 yrs. [ ]ii) Patient arriving by ambulance [ ]iii) Patient with high acuity [X]iv) Patient requiring vital sign monitoring [X]v) Patient on IV medication [ ]b) Systolic blood pressures 180mmHg 3,12 [ ]c) Patient with altered mental status including delirium and other alteration of consciousness, (3) [ ]d) Patient whose discharge disposition will be to a correction home or rehabilitation home should not be managed in Emergency Department Observation Unit. CMS rule requires 3 days hospital stay before such placement. 3,13 [ ]e) Patient with failure to thrive due to broad array of etiologies 3,16,17 [ ]f) Inability to ambulate 3,14 Extended stay beyond goal length of stay may be needed for (1)(28): [ ]a) Specific condition diagnosed after evaluation (eg, pulmonary embolism, aortic dissection) [ ]b) Unstable angina [ ]c) Continued suspicion of acute coronary syndrome with inability to complete needed cardiac evaluation (eg, patient clinically unable to undergo stress testing) [ ]d) Myocardial infarction (Contents from ANGINA and CHEST PAIN clinical indications for admission to inpatient care have been integrated in this form) The original [email or web address] content created by [employer] has been revised. The portions of the content which have been revised are identified through the use of italic text or in bold, and [facility] has neither reviewed nor approved the modified material. All other unmodified content is copyright [facility] [email or web address]. Please see references footnoted in the original [facility] edition 2016 Admission Criteria Met?: Yes GALINA PRINCE Oct 09, 2016 05:00
[2016-10-09 06:47] LABS: BASO # 0.1 x10^3/uL (0.0-0.2); BASO % 1 % (0-3); EOS % 8 % (0-3); HEMATOCRIT 43.4 % (39.0-53.0); HEMOGLOBIN 14.4 g/dL (13.0-17.5); LYMPH # 1.9 x10^3/uL (1.0-4.8); LYMPH % 23 % (24-48); MEAN CORPUSCULAR HEMOGLOBIN 29 pg (25-35); MEAN CORPUSCULAR HGB CONC 33 g/dL (31-37); MEAN CORPUSCULAR VOLUME 88 fL (79-100); MONO % 5 % (0-9); NEUT % 64 % (31-73); PLATELET COUNT 169 x10^3/uL (140-400); RED BLOOD COUNT 4.95 x10^6/uL (4.30-5.70); RED CELL DISTRIBUTION WIDTH 13.4 % (11.5-14.5); WHITE BLOOD COUNT 8.3 x10^3/uL (4.0-11.0)
[2016-10-09 07:00] VITALS: BP 118/79
[2016-10-09 07:09] LABS: CALCIUM 8.1 mg/dL (8.5-10.1); CREATININE 0.8 mg/dL (0.7-1.3); GFR 104.5; POTASSIUM 3.5 mmol/L (3.5-5.1)
[2016-10-09] MEDS: HYDROMORPHONE 2 MG/ML VIAL. IV PRN (07:54)
[2016-10-09] MEDS: OMEGA-3 FATTY ACIDS/FISH OIL 1,000 MG CAPSULE. PO SCH (07:54)
[2016-10-09] MEDS: buPROPion 100 MG TABLET PO SCH (07:54)
[2016-10-09] MEDS: LISINOPRIL 20 MG TABLET PO SCH ×2 (07:55→08:29)
[2016-10-09] MEDS: AMLODIPINE BESYLATE 10 MG TABLET PO SCH (07:55)
[2016-10-09] MEDS: TERBINAFINE 250 MG TABLET. PO SCH (07:55)
[2016-10-09] MEDS: HYDROCHLOROTHIAZIDE 12.5 MG CAPSULE. PO SCH (07:55)
[2016-10-09] MEDS: REPAGLINIDE 0.5 MG TABLET PO SCH ×2 (07:55→11:43)
[2016-10-09] MEDS: INSULIN ASPART 300 UNITS/3 ML INSULN.PEN SQ SCH ×2 (08:03→11:46)
--- NOTE | 2016-10-09 09:17 | PDOC ---
Infectious Disease Note Subjective Subjective feeling good ROS ROS GEN: Denies fevers, chills, sweats HEENT: Denies blurred vision, sore throat CV: Denies chest pain RESP: Denies shortness of air, cough GI: Denies n/v/d NEURO: Denies confusion, dizziness MSK: Denies weakness, joint pain/swelling Vital Sign Vital Signs Vital Signs Date Time Temp Pulse Resp B/P Pulse Ox O2 Delivery O2 Flow Rate FiO2 10/09/16 07:55 80 118/79 10/09/16 07:54 Room Air 10/09/16 07:00 97.9 18 90 97.9 Physical Exam PHYSICAL EXAM GENERAL: NAD, Alert HEENT: PERRL, OC/OP NECK: Supple, no JVD, no LN LUNGS: Clear HEART: S1S2, no gallop, no murmur ABD: Soft, NT, no organomegaly, no rebound EXT: No edema, no cyanosis PRODUCE WEIGHER: Alert, oriented x 3, no focal neurologic deficit SKIN: No rash IV: ok Labs Lab Laboratory Tests Test 10/08/16 09:55 10/08/16 11:43 10/08/16 15:40 10/08/16 16:43 D-Dimer (Judy) < 0.27ug/mlFEU (0.00-0.50) Troponin I Quantitative < 0.017ng/mL (0.000-0.055) < 0.017ng/mL (0.000-0.055) Glucose (Fingerstick) 279mg/dL (70-99) 226mg/dL (70-99) Test 10/08/16 20:50 10/09/16 05:35 10/09/16 06:54 Glucose (Fingerstick) 200mg/dL (70-99) 181mg/dL (70-99) White Blood Count 8.3x10^3/uL (4.0-11.0) Red Blood Count 4.95x10^6/uL (4.30-5.70) Hemoglobin 14.4g/dL (13.0-17.5) Hematocrit 43.4% (39.0-53.0) Mean Corpuscular Volume 88fL (79-100) Mean Corpuscular Hemoglobin 29pg (25-35) Mean Corpuscular Hemoglobin Concent 33g/dL (31-37) Red Cell Distribution Width 13.4% (11.5-14.5) Platelet Count 169x10^3/uL (140-400) Neutrophils (%) (Auto) 64% (31-73) Lymphocytes (%) (Auto) 23% (24-48) Monocytes (%) (Auto) 5% (0-9) Eosinophils (%) (Auto) 8% (0-3) Basophils (%) (Auto) 1% (0-3) Neutrophils # (Auto) 5.3x10^3uL (1.8-7.7) Lymphocytes # (Auto) 1.9x10^3/uL (1.0-4.8) Monocytes # (Auto) 0.4x10^3/uL (0.0-1.1) Eosinophils # (Auto) 0.6x10^3/uL (0.0-0.7) Basophils # (Auto) 0.1x10^3/uL (0.0-0.2) Sodium Level 137mmol/L (136-145) Potassium Level 3.5mmol/L (3.5-5.1) Chloride Level 101mmol/L (98-107) Carbon Dioxide Level 27mmol/L (21-32) Anion Gap 9 (6-14) Blood Urea Nitrogen 8mg/dL (8-26) Creatinine 0.8mg/dL (0.7-1.3) Estimated GFR (Cockcroft-Gault) 104.5 Glucose Level 207mg/dL (70-99) Calcium Level 8.1mg/dL (8.5-10.1) Objective Assessment Syphilis with the RPR titer 1: 512 Chest pain HTN NC CVA Plan Plan of Care PCN G 2.4 million units x 1 repeat rpr, FTA ABS pending SIS CARBONE MD Oct 09, 2016 09:17
[2016-10-09] MEDS ORDERED: PANT40TA3 PO (09:50)
[2016-10-09 11:00] VITALS: BP 120/75
--- NOTE | 2016-10-09 11:12 | PDOC ---
CARDIO Progress Notes Date and Time Date of Service 10/09/2016 Time of Evaluation 1010 Subjective Subjective: No Chest Pain, No shortness of breath, No Palpitations, No Dizziness, Other (did not sleep well, tired today) Vitals Vitals Vital Signs Date Time Temp Pulse Resp B/P Pulse Ox O2 Delivery O2 Flow Rate FiO2 10/09/16 08:00 Room Air 10/09/16 07:55 80 118/79 10/09/16 07:00 97.9 18 90 97.9 Weight Weight [ ] Input and Output Intake and Output Intake and Output 10/09/16 07:00 Intake Total 2240 ml Output Total 3450 ml Balance -1210 ml Intake Oral 1240 ml IV Total 1000 ml Output Urine Total 3450 ml Laboratory Labs Laboratory Tests Test 10/08/16 11:43 10/08/16 15:40 10/08/16 16:43 10/08/16 20:50 Glucose (Fingerstick) 279mg/dL (70-99) 226mg/dL (70-99) 200mg/dL (70-99) Troponin I Quantitative < 0.017ng/mL (0.000-0.055) Test 10/09/16 05:35 10/09/16 06:54 White Blood Count 8.3x10^3/uL (4.0-11.0) Red Blood Count 4.95x10^6/uL (4.30-5.70) Hemoglobin 14.4g/dL (13.0-17.5) Hematocrit 43.4% (39.0-53.0) Mean Corpuscular Volume 88fL (79-100) Mean Corpuscular Hemoglobin 29pg (25-35) Mean Corpuscular Hemoglobin Concent 33g/dL (31-37) Red Cell Distribution Width 13.4% (11.5-14.5) Platelet Count 169x10^3/uL (140-400) Neutrophils (%) (Auto) 64% (31-73) Lymphocytes (%) (Auto) 23% (24-48) Monocytes (%) (Auto) 5% (0-9) Eosinophils (%) (Auto) 8% (0-3) Basophils (%) (Auto) 1% (0-3) Neutrophils # (Auto) 5.3x10^3uL (1.8-7.7) Lymphocytes # (Auto) 1.9x10^3/uL (1.0-4.8) Monocytes # (Auto) 0.4x10^3/uL (0.0-1.1) Eosinophils # (Auto) 0.6x10^3/uL (0.0-0.7) Basophils # (Auto) 0.1x10^3/uL (0.0-0.2) Sodium Level 137mmol/L (136-145) Potassium Level 3.5mmol/L (3.5-5.1) Chloride Level 101mmol/L (98-107) Carbon Dioxide Level 27mmol/L (21-32) Anion Gap 9 (6-14) Blood Urea Nitrogen 8mg/dL (8-26) Creatinine 0.8mg/dL (0.7-1.3) Estimated GFR (Cockcroft-Gault) 104.5 Glucose Level 207mg/dL (70-99) Calcium Level 8.1mg/dL (8.5-10.1) Glucose (Fingerstick) 181mg/dL (70-99) Physical Exam HEENT: Neck Supple W Full Motion Chest: Symmetric LUNGS: Clear to Auscultation Heart: S1S2, RRR (off monitor) Abdomen: Soft N/T Extremities: No Edema, No Calf Tenderness Neurology: alert, oriented, follow commands Assessment Assessment 1. Chest pain: Recent stress test 3 months ago. Noncardiac. GI or mediastinal lymphadenitis? 2. Hx of KS: 2008 and 2010. No LHC done. 3. Hx of CVA: 01/2016 4. Syphilis 5. Accelerated HTN: due to missed meds. now controlled 6. DM2/HLP/RIVERA: Tigs 600s 7. Obese: BMI 36 Recommendations 1. CTA revealed no aortitis or aortic vessel anomaly but with several prominent mediastinal lymph nodes with possible interfissural lymph node. Defer to ID/PCP 2. Troponin series normal, no acute changes to EKG, TTE unremarkable for significant changes. No further cardiac recommendation at this time. Pls call if any questions. 3. Will update cardiac records when old records become available from Dr. Sylwia Bennett. 4. Continue with secondary prevention and optimization 5. Increase lipitor and add fish oil to statin. 6. Encourage lifestyle modification DUNIA LOPEZ APRN Oct 09, 2016 11:12
--- NOTE | 2016-10-09 15:33 | PDOC ---
PROGRESS NOTES Chief Complaint Chief Complaint cc: chest pain 1. Chest pain: possible due to GERD vs msk related. 2. Hx of AK: 2008 and 2010. 3. Hx of CVA: 01/2016 4. Syphilis 5. Accelerated HTN: stable 6. DM2 7. Obese: BMI 36 PLAN pulmonology consult for lymphadenopathy Vitals Vitals Vital Signs Date Time Temp Pulse Resp B/P Pulse Ox O2 Delivery O2 Flow Rate FiO2 10/09/16 11:00 97.9 80 18 120/75 92 Room Air 97.9 Physical Exam General: Alert, Oriented X3, Cooperative, No acute distress Heart: Regular rate, Normal S1, Normal S2, No murmurs Abdomen: Soft, No tenderness Extremities: No cyanosis, No edema Skin: No breakdown, No significant lesion Labs LABS Laboratory Tests Test 10/08/16 15:40 10/08/16 16:43 10/08/16 20:50 10/09/16 05:35 Troponin I Quantitative < 0.017ng/mL (0.000-0.055) Glucose (Fingerstick) 226mg/dL (70-99) 200mg/dL (70-99) White Blood Count 8.3x10^3/uL (4.0-11.0) Red Blood Count 4.95x10^6/uL (4.30-5.70) Hemoglobin 14.4g/dL (13.0-17.5) Hematocrit 43.4% (39.0-53.0) Mean Corpuscular Volume 88fL (79-100) Mean Corpuscular Hemoglobin 29pg (25-35) Mean Corpuscular Hemoglobin Concent 33g/dL (31-37) Red Cell Distribution Width 13.4% (11.5-14.5) Platelet Count 169x10^3/uL (140-400) Neutrophils (%) (Auto) 64% (31-73) Lymphocytes (%) (Auto) 23% (24-48) Monocytes (%) (Auto) 5% (0-9) Eosinophils (%) (Auto) 8% (0-3) Basophils (%) (Auto) 1% (0-3) Neutrophils # (Auto) 5.3x10^3uL (1.8-7.7) Lymphocytes # (Auto) 1.9x10^3/uL (1.0-4.8) Monocytes # (Auto) 0.4x10^3/uL (0.0-1.1) Eosinophils # (Auto) 0.6x10^3/uL (0.0-0.7) Basophils # (Auto) 0.1x10^3/uL (0.0-0.2) Sodium Level 137mmol/L (136-145) Potassium Level 3.5mmol/L (3.5-5.1) Chloride Level 101mmol/L (98-107) Carbon Dioxide Level 27mmol/L (21-32) Anion Gap 9 (6-14) Blood Urea Nitrogen 8mg/dL (8-26) Creatinine 0.8mg/dL (0.7-1.3) Estimated GFR (Cockcroft-Gault) 104.5 Glucose Level 207mg/dL (70-99) Calcium Level 8.1mg/dL (8.5-10.1) Test 10/09/16 06:54 10/09/16 10:56 Glucose (Fingerstick) 181mg/dL (70-99) 249mg/dL (70-99) Assessment and Plan Assessmemt and Plan Problems Medical Problems: (1) Accelerated hypertension Status: Acute (2) Chest pain Status: Acute (3) Dehydration Status: Acute (4) Moderate protein malnutrition Status: Acute (5) Uncontrolled diabetes mellitus Status: Acute Problems: Comment Review of Relevant I have reviewed the following items john (where applicable) has been applied. Labs Laboratory Tests Test 10/08/16 02:25 10/08/16 02:30 10/08/16 06:58 10/08/16 09:55 Urine Collection Type Unknown Urine Color Yellow Urine Clarity Clear Urine pH 7.0 Urine Specific Anita >=1.030 Urine Protein Negativemg/dL (NEG-TRACE) Urine Glucose (UA) >=1000mg/dL (NEG) Urine Ketones (Stick) Negativemg/dL (NEG) Urine Blood Negative (NEG) Urine Nitrite Negative (NEG) Urine Bilirubin Negative (NEG) Urine Urobilinogen Dipstick 0.2mg/dL (0.2 mg/dL) Urine Leukocyte Esterase Negative (NEG) Urine RBC 0/HPF (0-2) Urine WBC Occ/HPF (0-4) Urine Squamous Epithelial Cells Occ/LPF Urine Bacteria 0/HPF (0-FEW) White Blood Count 10.4x10^3/uL (4.0-11.0) Red Blood Count 5.14x10^6/uL (4.30-5.70) Hemoglobin 15.0g/dL (13.0-17.5) Hematocrit 44.6% (39.0-53.0) Mean Corpuscular Volume 87fL (79-100) Mean Corpuscular Hemoglobin 29pg (25-35) Mean Corpuscular Hemoglobin Concent 34g/dL (31-37) Red Cell Distribution Width 13.5% (11.5-14.5) Platelet Count 176x10^3/uL (140-400) Neutrophils (%) (Auto) 66% (31-73) Lymphocytes (%) (Auto) 22% (24-48) Monocytes (%) (Auto) 7% (0-9) Eosinophils (%) (Auto) 5% (0-3) Basophils (%) (Auto) 1% (0-3) Neutrophils # (Auto) 6.9x10^3uL (1.8-7.7) Lymphocytes # (Auto) 2.2x10^3/uL (1.0-4.8) Monocytes # (Auto) 0.7x10^3/uL (0.0-1.1) Eosinophils # (Auto) 0.5x10^3/uL (0.0-0.7) Basophils # (Auto) 0.1x10^3/uL (0.0-0.2) Sodium Level 141mmol/L (136-145) Potassium Level 3.5mmol/L (3.5-5.1) Chloride Level 103mmol/L (98-107) Carbon Dioxide Level 28mmol/L (21-32) Anion Gap 10 (6-14) Blood Urea Nitrogen 10mg/dL (8-26) Creatinine 1.0mg/dL (0.7-1.3) Estimated GFR (Cockcroft-Gault) 80.8 Glucose Level 424mg/dL (70-99) Calcium Level 8.3mg/dL (8.5-10.1) Magnesium Level 1.7mg/dL (1.8-2.4) Total Bilirubin 0.3mg/dL (0.2-1.0) Direct Bilirubin 0.1mg/dL (0.0-0.2) Aspartate Amino Transf (AST/SGOT) 18U/L (15-37) Alanine Aminotransferase (ALT/SGPT) 43U/L (16-63) Alkaline Phosphatase 198U/L (46-116) Creatine Kinase 362U/L (39-308) Creatine Kinase MB (Mass) 1.1ng/mL (0.0-3.6) Creatine Kinase MB Relative Index 0.3% (0-4) Troponin I Quantitative < 0.017ng/mL (0.000-0.055) < 0.017ng/mL (0.000-0.055) Total Protein 6.3g/dL (6.4-8.2) Albumin 2.9g/dL (3.4-5.0) Triglycerides Level 629mg/dL (0-150) Cholesterol Level 199mg/dL (0-200) LDL Cholesterol, Calculated 43mg/dL (0-100) VLDL Cholesterol, Calculated 126mg/dL (0-40) HDL Cholesterol 30mg/dL (40-60) Cholesterol/HDL Ratio 6.6 Lipase 180U/L (73-393) Thyroid Stimulating Hormone (TSH) 3.522uIU/mL (0.358-3.74) Glucose (Fingerstick) 371mg/dL (70-99) D-Dimer (Judy) < 0.27ug/mlFEU (0.00-0.50) Test 10/08/16 11:43 10/08/16 15:40 10/08/16 16:43 10/08/16 20:50 Glucose (Fingerstick) 279mg/dL (70-99) 226mg/dL (70-99) 200mg/dL (70-99) Troponin I Quantitative < 0.017ng/mL (0.000-0.055) Test 10/09/16 05:35 10/09/16 06:54 10/09/16 10:56 White Blood Count 8.3x10^3/uL (4.0-11.0) Red Blood Count 4.95x10^6/uL (4.30-5.70) Hemoglobin 14.4g/dL (13.0-17.5) Hematocrit 43.4% (39.0-53.0) Mean Corpuscular Volume 88fL (79-100) Mean Corpuscular Hemoglobin 29pg (25-35) Mean Corpuscular Hemoglobin Concent 33g/dL (31-37) Red Cell Distribution Width 13.4% (11.5-14.5) Platelet Count 169x10^3/uL (140-400) Neutrophils (%) (Auto) 64% (31-73) Lymphocytes (%) (Auto) 23% (24-48) Monocytes (%) (Auto) 5% (0-9) Eosinophils (%) (Auto) 8% (0-3) Basophils (%) (Auto) 1% (0-3) Neutrophils # (Auto) 5.3x10^3uL (1.8-7.7) Lymphocytes # (Auto) 1.9x10^3/uL (1.0-4.8) Monocytes # (Auto) 0.4x10^3/uL (0.0-1.1) Eosinophils # (Auto) 0.6x10^3/uL (0.0-0.7) Basophils # (Auto) 0.1x10^3/uL (0.0-0.2) Sodium Level 137mmol/L (136-145) Potassium Level 3.5mmol/L (3.5-5.1) Chloride Level 101mmol/L (98-107) Carbon Dioxide Level 27mmol/L (21-32) Anion Gap 9 (6-14) Blood Urea Nitrogen 8mg/dL (8-26) Creatinine 0.8mg/dL (0.7-1.3) Estimated GFR (Cockcroft-Gault) 104.5 Glucose Level 207mg/dL (70-99) Calcium Level 8.1mg/dL (8.5-10.1) Glucose (Fingerstick) 181mg/dL (70-99) 249mg/dL (70-99) Laboratory Tests Test 10/08/16 15:40 10/08/16 16:43 10/08/16 20:50 10/09/16 05:35 Troponin I Quantitative < 0.017ng/mL (0.000-0.055) Glucose (Fingerstick) 226mg/dL (70-99) 200mg/dL (70-99) White Blood Count 8.3x10^3/uL (4.0-11.0) Red Blood Count 4.95x10^6/uL (4.30-5.70) Hemoglobin 14.4g/dL (13.0-17.5) Hematocrit 43.4% (39.0-53.0) Mean Corpuscular Volume 88fL (79-100) Mean Corpuscular Hemoglobin 29pg (25-35) Mean Corpuscular Hemoglobin Concent 33g/dL (31-37) Red Cell Distribution Width 13.4% (11.5-14.5) Platelet Count 169x10^3/uL (140-400) Neutrophils (%) (Auto) 64% (31-73) Lymphocytes (%) (Auto) 23% (24-48) Monocytes (%) (Auto) 5% (0-9) Eosinophils (%) (Auto) 8% (0-3) Basophils (%) (Auto) 1% (0-3) Neutrophils # (Auto) 5.3x10^3uL (1.8-7.7) Lymphocytes # (Auto) 1.9x10^3/uL (1.0-4.8) Monocytes # (Auto) 0.4x10^3/uL (0.0-1.1) Eosinophils # (Auto) 0.6x10^3/uL (0.0-0.7) Basophils # (Auto) 0.1x10^3/uL (0.0-0.2) Sodium Level 137mmol/L (136-145) Potassium Level 3.5mmol/L (3.5-5.1) Chloride Level 101mmol/L (98-107) Carbon Dioxide Level 27mmol/L (21-32) Anion Gap 9 (6-14) Blood Urea Nitrogen 8mg/dL (8-26) Creatinine 0.8mg/dL (0.7-1.3) Estimated GFR (Cockcroft-Gault) 104.5 Glucose Level 207mg/dL (70-99) Calcium Level 8.1mg/dL (8.5-10.1) Test 10/09/16 06:54 10/09/16 10:56 Glucose (Fingerstick) 181mg/dL (70-99) 249mg/dL (70-99) Medications Current Medications Aspirin (Children'S Aspirin) 324 mg 1X ONCE PO Last administered on 10/08/16 03:08; Start 10/08/16 at 03:00; Stop 10/08/16 at 03:01; Status DC Lorazepam 1 mg 1 mg 1X ONCE IV Last administered on 10/08/16 03:08; Start at 03:00; Stop 10/08/16 at 03:01; Status DC Sodium Chloride (Iv Sodium Chloride 0.9% 1000ml Bag) 1,000 ml @ 100 mls/hr Q10H IV Last administered on 10/08/16 03:09; Start 10/08/16 at 03:00; Stop at 12:59; Status DC Multi-Ingredient Mouthwash/Gargle (Gi Cocktail Single Dose) 15 ml 1X ONCE SWSW Last administered on 10/08/16 03:00; Start 10/08/16 at 03:00; Stop 10/08/16 at 03:01; Status DC Labetalol HCl (Normodyne) 20 mg 1X ONCE IVP Last administered on 10/08/16 03: 07; Start 10/08/16 at 03:00; Stop 10/08/16 at 03:01; Status DC Aspirin (Children'S Aspirin) 324 mg 1X ONCE PO ; Start 10/08/16 at 03:00; Stop 10/08/16 at 03:01; Status UNV Ondansetron HCl 4 mg 4 mg PRN Q8HRS PRN IV NAUSEA/VOMITING; Start 10/08/16 at 03:45; Stop 10/09/16 at 03:44; Status DC Sodium Chloride (Iv Sodium Chloride 0.9% 1000ml Bag) 1,000 ml @ 100 mls/hr Q10H IV Last administered on 10/08/16 22:25; Start 10/08/16 at 03:45; Stop at 03:44; Status DC Acetaminophen (Tylenol) 650 mg PRN Q4HRS PRN PO FEVER; Start 10/08/16 at 03:45 ; Stop 10/09/16 at 03:44; Status DC Hydromorphone HCl (Dilaudid) 1 mg PRN Q2HR PRN IV PAIN Last administered on 09:50; Start 10/08/16 at 03:45; Stop 10/08/16 at 10:14; Status DC Insulin Aspart (Novolog) 0-9 UNITS TIDWMEALS SQ Last administered on 10/09/16 11:46; Start 10/08/16 at 08:00; Stop 10/09/16 at 15:13; Status DC Dextrose 12.5 gm PRN Q15MIN PRN IV SEE COMMENTS; Start 10/08/16 at 03:45; Stop 10/09/16 at 15:13; Status DC Fentanyl Citrate (Fentanyl 2ml Vial) 50 mcg PRN Q2HR PRN IV PAIN Last administered on 10/08/16 06:36; Start 10/08/16 at 06:30; Stop 10/08/16 at 10:14 ; Status DC Pneumococcal Polyvalent Vaccine (Do NOT chart on this placeholder) 1 each 1X ONCE MC ; Start 10/08/16 at 08:00; Stop 10/08/16 at 08:01; Status UNV Pneumococcal Polyvalent Vaccine (Pneumovax 23) 0.5 ml ONCE ONCE VAX IM ; Start 10/08/16 at 09:00; Stop 10/08/16 at 09:01; Status DC Acetaminophen (Tylenol) 325 mg PRN Q6HRS PRN PO MILD PAIN / TEMP; Start at 09:30; Stop 10/09/16 at 15:13; Status DC Acetaminophen/ Hydrocodone Bitart (Lortab 5/325) 1 tab PRN Q6HRS PRN PO MODERATE TO SEVERE PAIN Last administered on 10/08/16 22:10; Start 10/08/16 at 09:30; Stop 10/09/16 at 15:13; Status DC Hydralazine HCl (Apresoline) 10 mg PRN Q4HRS PRN IVP ELEVATED BP, SEE COMMENTS ; Start 10/08/16 at 09:30; Stop 10/09/16 at 15:13; Status DC Ondansetron HCl (Zofran) 4 mg PRN Q8HRS PRN IV NAUSEA/VOMITING; Start 10/08/16 at 09:30; Stop 10/09/16 at 15:13; Status DC Albuterol Sulfate 2.5 mg 2.5 mg PRN Q4HRS PRN NEB SHORTNESS OF BREATH; Start at 09:30; Stop 10/09/16 at 15:13; Status DC Magnesium Sulfate/ Dextrose (Magnesium Sulfate PREMIX 2GM) 50 ml @ 25 mls/hr 1X ONCE IV Last administered on 10/08/16 10:29; Start 10/08/16 at 11:00; Stop 10/08/16 at 12:59; Status DC Amlodipine Besylate (Norvasc) 10 mg DAILY PO Last administered on 10/09/16 07: 55; Start 10/08/16 at 11:00; Stop 10/09/16 at 15:13; Status DC Atorvastatin Calcium (Lipitor) 10 mg HS PO Last administered on 10/08/16 21:53 ; Start 10/08/16 at 21:00; Stop 10/09/16 at 11:13; Status DC Bupropion HCl (Wellbutrin) 150 mg BID PO Last administered on 10/09/16 07:54; Start 10/08/16 at 21:00; Stop 10/09/16 at 15:13; Status DC Hydroxyzine Pamoate (Vistaril) 25 mg QHS PO Last administered on 10/08/16 21: 54; Start 10/08/16 at 21:00; Stop 10/09/16 at 15:13; Status DC Ibuprofen (Motrin) 400 mg PRN TID PRN PO INFLAMMATION Last administered on 10/08 19:30; Start 10/08/16 at 09:45; Stop 10/09/16 at 15:13; Status DC Lisinopril (Prinivil) 20 mg DAILY PO Last administered on 10/09/16 07:55; Start 10/08/16 at 11:00; Stop 10/09/16 at 15:13; Status DC Lorazepam (Ativan) 1 mg PRN Q6HRS PRN PO ANXIETY / AGITATION Last administered on 10/08/16 19:30; Start 10/08/16 at 09:45; Stop 10/09/16 at 15:13; Status DC Metformin HCl (Glucophage) 1,000 mg [id number] PO ; Start 10/08/16 at 11:00; Stop at 13:04; Status DC Terbinafine HCl (Lamisil) 250 mg DAILY PO Last administered on 10/09/16 07:55 ; Start 10/08/16 at 11:00; Stop 10/09/16 at 15:13; Status DC Insulin Detemir (Levemir) 20 units QHS SQ Last administered on 10/08/16 22:08 ; Start 10/08/16 at 21:00; Stop 10/09/16 at 15:13; Status DC Lisinopril (Prinivil) 20 mg DAILY PO ; Start 10/08/16 at 18:00; Stop 10/09/16 at 15:13; Status DC Repaglinide (Prandin) 1 mg TIDAC PO Last administered on 10/09/16 11:43; Start 10/08/16 at 11:30; Stop 10/09/16 at 15:13; Status DC Hydromorphone HCl (Dilaudid) 0.5 mg PRN Q2HR PRN IV PAIN Last administered on 07:54; Start 10/08/16 at 10:15; Stop 10/09/16 at 15:13; Status DC Penicillin G Benzathine (Bicillin L-A) 2,400,000 unit 1X ONCE IM Last administered on 10/08/16 14:17; Start 10/08/16 at 13:00; Stop 10/08/16 at 13:01 ; Status DC Iohexol (Omnipaque 350 Mg/ml) 100 ml 1X ONCE IV ; Start 10/08/16 at 13:15; Stop 10/08/16 at 13:16; Status DC Info (Do NOT chart on this entry -- for MONITORING) 1 each PRN DAILY PRN MC SEE COMMENTS; Start 10/08/16 at 13:15; Stop 10/09/16 at 15:13; Status DC Metformin HCl (Glucophage) 1,000 mg [id number] PO ; Start 10/10/16 at 18:00; Stop at 18:00; Status DC Fish Oil (Fish Oil) 2,000 mg BID PO Last administered on 10/09/16 07:54; Start 10/08/16 at 21:00; Stop 10/09/16 at 15:13; Status DC Hydrochlorothiazide (Microzide) 12.5 mg DAILY PO Last administered on 07:55; Start 10/08/16 at 18:00; Stop 10/09/16 at 15:13; Status DC Atorvastatin Calcium (Lipitor) 20 mg HS PO ; Start 10/09/16 at 21:00; Stop 10/09 at 21:00; Status DC Active Scripts Active Protonix (Pantoprazole Sodium) 40 Mg Tablet.dr 40 Mg PO DAILY Reported Terbinafine Hcl 250 Mg Tablet 1 Tab PO DAILY Atorvastatin Calcium 10 Mg Tablet 10 Mg PO HS Amlodipine Besylate 10 Mg Tablet 10 Mg PO DAILY Lisinopril-Hctz 20-12.5 Mg Tab (Lisinopril/Hydrochlorothiazide) 1 Each Tablet 1 Tab PO DAILY Lisinopril 20 Mg Tablet 1 Tab PO DAILY Bupropion Hcl 100 Mg Tablet 150 Mg PO BID Hydroxyzine Pamoate 25 Mg Capsule 25 Mg PO QHS Lorazepam 1 Mg Tablet 1 Tab PO PRN Q6HRS PRN Levemir (Insulin Detemir) 100 Unit/1 Ml Vial 20 Unit SQ QHS Repaglinide 1 Mg Tablet 1 Mg PO TID Metformin Hcl 1,000 Mg Tablet 1,000 Mg PO [id number] Vitals/I & O Vital Sign - Last 24 Hours 10/08/16 10/08/16 10/08/16 10/08/16 16:53 17:24 19:18 19:31 Temp 97.8 97.8 Pulse 86 Resp 18 20 B/P 149/103 Pulse Ox 98 O2 Delivery Room Air Room Air Room Air Room Air 10/08/16 10/08/16 10/08/16 10/08/16 20:01 22:03 22:10 23:01 Temp 98.6 98.6 Pulse 78 Resp 20 20 20 20 B/P 137/81 Pulse Ox 96 O2 Delivery Room Air Room Air 10/08/16 10/08/16 10/09/16 10/09/16 23:10 23:58 03:19 07:00 Temp 98.3 97.9 98.3 97.9 Pulse 72 80 Resp 20 20 18 18 B/P 143/96 118/79 Pulse Ox 94 90 O2 Delivery Room Air Room Air Room Air 10/09/16 10/09/16 10/09/16 10/09/16 07:54 07:55 07:55 08:00 Pulse 80 80 B/P 118/79 118/79 O2 Delivery Room Air Room Air 10/09/16 11:00 Temp 97.9 97.9 Pulse 80 Resp 18 B/P 120/75 Pulse Ox 92 O2 Delivery Room Air Intake and Output 10/08/16 10/08/16 10/09/16 15:00 23:00 07:00 Intake Total 1800 ml 440 ml Output Total 900 ml 1200 ml 1350 ml Balance -900 ml 600 ml -910 ml SANDY RANKIN MD Oct 09, 2016 15:33
[2016-10-09] MEDS ORDERED: ATORVASTATIN CALCIUM 20 MG TABLET PO SCH (21:00)
[2016-10-10] MEDS ORDERED: METFORMIN 1,000 MG TABLET PO SCH (18:00)
== END 2016-10-09 13:10 | disposition home or self-care (01) | DRG 868 ==
LOC: ER 02:19 → 5 SOUTH 03:42
PROVIDERS: ADMIT Internal Medicine; ATTEND Internal Medicine
DX: A53.9 Syphilis, unspecified (principal); E44.0 Moderate protein-calorie malnutrition; K21.9 Gastro-esophageal reflux disease without esophagitis; E11.65 Type 2 diabetes mellitus with hyperglycemia; E66.9 Obesity, unspecified; E78.00 Pure hypercholesterolemia, unspecified; E78.5 Hyperlipidemia, unspecified; E86.0 Dehydration; F10.20 Alcohol dependence, uncomplicated; I15.8 Other secondary hypertension; M79.89 Other specified soft tissue disorders; F41.9 Anxiety disorder, unspecified; M19.90 Unspecified osteoarthritis, unspecified site; I25.10 Atherosclerotic heart disease of native coronary artery without angina pectoris; I25.2 Old myocardial infarction; Z68.36 Body mass index [BMI] 36.0-36.9, adult; Z82.49 Family history of ischemic heart disease and other diseases of the circulatory system; Z86.73 Personal history of transient ischemic attack (TIA), and cerebral infarction without residual deficits; Z91.19 Patient's noncompliance with other medical treatment and regimen; Z88.8 Allergy status to other drugs, medicaments and biological substances
CPT/HCPCS: 36415; 71010; 71275; 80048; 80061; 80076; 81001; 82553; 82947; 83690; 83735; 84443; 84484; 85027; 85379; 86593; 93005; 93306; 96374; 96375; J0561; J1170; J1815; J2060; J3010; J3490; J7030; J7060; Q0177; 99285-25